=== PATIENT | male | born 1955 | race Caucasian/White ===

== ENCOUNTER → 2017-01-26 | Outpatient (CLI) | payer OTHER ==
[2017-01-26 17:50] LABS: ALT 60 U/L (21-72); AST 39 U/L (17-59); Alkaline Phosphatase 50 U/L (38-126); Anion Gap 9 mmol/L; Blood Urea Nitrogen 18 mg/dL (9-20); Calcium 9.8 mg/dL (8.4-10.2); Carbon Dioxide 28 mmol/L (22-30); Chloride 105 mmol/L (98-107); Glucose 102 mg/dL (74-99); Non-African American GFR(MDRD) 57 (>60 ml/min/1.73 sqM); Potassium 4.4 mmol/L (3.5-5.1); Sodium 142 mmol/L (137-145); Total Bilirubin 0.9 mg/dL (0.2-1.3); Total Protein 7.3 g/dL (6.3-8.2)
[2017-01-27 16:50] LABS: Lead Source VENOUS
[2017-01-28 07:13] LABS: Lead, Blood 28.5 ug/dL (0.0-9.8)
== END | disposition home or self-care (01) ==
LOC: LABWHC1 16:44
PROVIDERS: ATTEND Family Medicine
DX: T56.0X4D Toxic effect of lead and its compounds, undetermined, subsequent encounter (principal)
CPT/HCPCS: 36415; 80053; 83655

== ENCOUNTER → 2017-05-05 | Outpatient (CLI) | payer OTHER ==
--- NOTE | 2017-05-05 16:06 | XR ---
Left shoulder HISTORY: Left shoulder pain 3 views of the left shoulder Left lung apex as visualized is normal. There is joint space loss of the glenohumeral joint with igor inal spurring present. Question distal left clavicular resection, correlate for surgery. 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 IMPRESSION: Osteoarthritis.
== END ==
LOC: RADXRYALE 15:16
PROVIDERS: ATTEND Family Medicine
DX: M19.012 Primary osteoarthritis, left shoulder (principal)

== ENCOUNTER 2017-09-02 07:20 | Day surgery (SDC) | payer OTHER ==
[2017-08-25 07:59] VITALS: BMI 29.5
[~2017-09-02 07:20] MED LIST: LACTATED RINGERS 1,000 ML IV SCH
[2017-09-02 07:51] VITALS: TEMP 97.7
[2017-09-02] MEDS ORDERED: LIDOCAINE 1% 20 ML VIAL (10MG/ML) FOR IV START INTRADERMA ONE (07:52)
[2017-09-02] MEDS ORDERED: ONDANSETRON 4 MG/2 ML VIAL IVP ONE (07:53)
[2017-09-02] MEDS ORDERED: DEXAMETHASONE SOD PHOSPHATE 10 MG/ML 1 ML VIAL IV ONE (07:54)
[2017-09-02] MEDS ORDERED: PROPOFOL 10 MG/ML 20 ML VIAL IV ONE (08:32)
[2017-09-02] MEDS ORDERED: LIDOCAINE 1% INJ 10MG/ML (20 ML MDV) ONE (08:32)
[2017-09-02 09:10] VITALS: RESP 16
[2017-09-02 09:34] VITALS: BP 108/68; PULSE 59
--- NOTE | 2017-09-02 11:40 | P.PCN ---
Date of Procedure: 09/02/17 Procedure(s) Performed: procedure: Total colonoscopy. Preoperative diagnosis: Screening for neoplasia. Postoperative diagnosis: Exam within normal limits. Preparation: HalfLytely prep. Sedation: Was provided by anesthesia. Brief clinical history: The patient is a 61-year-old male who is scheduled for this evaluation for screening for neoplasia. He has a prior exam more than 10 years ago and he believes couple or 3 polyps were removed at that time. He has occasional intermittent bleeding per rectum which he ascribes for hemorrhoids. He had prior hemorrhoid surgery with Dr. Perry several years back. At this time, he has no abdominal complaints, bleeding or anemia. Procedure: With the patient on his left lateral decubitus position and after informed consent and adequate sedation, the perianal area was inspected and it did not show any fissures or fistulas. There were no masses felt on digital rectal examination, the anal canal felt minimally stenotic. The Olympus CFQ 160L video colonoscope was then inserted in the rectum in the usual fashion and advanced to the cecum. There were no polyps or tumors seen or any obvious diverticular disease or other pathology. The mucosa appeared healthy. I retroflexed the endoscope in the rectum before the endoscope was withdrawn. The patient tolerated the procedure well. Plan: The patient was reassured. Discussed dietary measures. He will follow up with you as planned and I recommended repeat exam in 5 years.
== END 2017-09-02 09:56 | disposition home or self-care (01) ==
LOC: ORWHC2ENDO 07:20
DX: Z12.11 Encounter for screening for malignant neoplasm of colon (principal); J45.909 Unspecified asthma, uncomplicated; K21.9 Gastro-esophageal reflux disease without esophagitis; I10 Essential (primary) hypertension; M19.90 Unspecified osteoarthritis, unspecified site; Z88.8 Allergy status to other drugs, medicaments and biological substances; Z79.899 Other long term (current) drug therapy
CPT/HCPCS: J1100; J2405; J2001; J2704; G0121; 45378

== ENCOUNTER → 2017-10-28 | Outpatient (CLI) | payer OTHER ==
--- NOTE | 2017-10-28 14:53 | XR ---
EXAMINATION TYPE: XR wrist complete LT DATE OF EXAM: 10/28/2017 CLINICAL HISTORY: Left wrist pain. TECHNIQUE: Frontal, lateral and oblique images of the left wrist are obtained. COMPARISON: None FINDINGS: There is no acute fracture/dislocation evident in the left wrist. There is joint space los s distal radius articulation with scaphoid. No suspicious widening scapholunate space is present. The overlying soft tissue appears unremarkable. IMPRESSION: There is narrowing distal radius articulation with scaphoid.
--- NOTE | 2017-10-28 14:54 | XR ---
EXAMINATION TYPE: XR knee complete LT DATE OF EXAM: 10/28/2017 CLINICAL HISTORY: Left knee pain after strain injury last week. TECHNIQUE: Three views of the left knee are obtained. COMPARISON: None. FINDINGS: There is no acute fracture/dislocation evident in left knee. The tri-compartment joint sp aces appear within normal limits. The overlying soft tissue appears unremarkable. IMPRESSION: There is no acute fracture or dislocation in the left knee.
== END | disposition home or self-care (01) ==
LOC: RADXRYALE 14:34
PROVIDERS: ATTEND Physician Assistant Medical
DX: M89.8X4 Other specified disorders of bone, hand (principal); M25.532 Pain in left wrist; M25.562 Pain in left knee

== ENCOUNTER 2018-01-27 13:13 | Inpatient (IN) | payer OTHER ==
--- NOTE | 2018-01-27 14:13 | ED ---
General Adult HPI - General Chief complaint: Chest Pain Stated complaint: Chest Pain Time Seen by Provider: 01/27/18 13:48 Source: patient, RN notes reviewed, old records reviewed Mode of arrival: wheelchair Limitations: no limitations - History of Present Illness Initial comments: 62-year-old male presenting for evaluation of chest pain. Patient's pain has been ongoing for approximately one month. He does state that it is substernal, right-sided and radiates to his neck. It is associated with diaphoresis with it at its worst. Patient has no known history of CAD. He is otherwise healthy. Nonsmoker. Patient was sent from his primary care's office with EKG changes. Symptoms are related to stress as he has had a lot of issues with his family over the past month. He reports almost daily indigestion which has been taking antacids for. No lower extremity pain or swelling. No abdominal pain. - Related Data Home Medications Medication Instructions Recorded Confirmed Flaxseed Oil [[place]-3 Flaxseed Oil] 1,000 mg PO DAILY 03/08/17 01/27/18 Multivitamins, Thera [Multivitamin 1 tab PO DAILY 03/08/17 01/27/18 (formulary)] [place]-3 Fatty Acids/Fish Oil [Fish 1 cap PO DAILY 03/08/17 01/27/18 Oil 1,000 mg Capsule] Celecoxib [CeleBREX] 200 mg PO QAM 08/25/17 01/27/18 Ascorbic Acid [Vitamin C] 500 mg PO DAILY 01/27/18 01/27/18 Calcium Carbonate [Calcium] 600 mg PO DAILY 01/27/18 01/27/18 Glucosamine/Chondr Diane A Sod [Osteo 1 tab PO DAILY 01/27/18 01/27/18 Bi-Flex Caplet] Allergies Allergy/AdvReac Type Severity Reaction Status Date / Time antihistamines Allergy rapid Uncoded 01/27/18 13:19 heart beat/passed out Review of Systems ROS Statement: Those systems with pertinent positive or pertinent negative responses have been documented in the HPI. ROS Other: All systems not noted in ROS Statement are negative. Past Medical History Past Medical History: Asthma, GERD/Reflux, Hypertension, Osteoarthritis (OA) Additional Past Medical History / Comment(s): hx of polyps and hemmoroids History of Any Multi-Drug Resistant Organisms: None Reported Past Surgical History: Cholecystectomy, Orthopedic Surgery Additional Past Surgical History / Comment(s): hemorrhoidectomy x 3, fusion of joint in great toe rt foot, rt hand surgery(removed two bones), chanel shoulder rotator cuff, left shoulder x2 Past Anesthesia/Blood Transfusion Reactions: Postoperative Nausea & Vomiting ( PONV) Additional Past Anesthesia/Blood Transfusion Reaction / Comment(s): severe, NV with pre op nausea meds Past Psychological History: No Psychological Hx Reported Smoking Status: Never smoker Past Alcohol Use History: Occasional Past Drug Use History: None Reported - Past Family History Sister(s) Family Medical History: Cancer, Deep Vein Thrombosis (DVT) General Exam Limitations: no limitations General appearance: alert, in no apparent distress Head exam: Present: atraumatic, normocephalic Eye exam: Present: normal appearance, PERRL, EOMI ENT exam: Present: normal exam Neck exam: Present: normal inspection. Absent: tenderness, meningismus Respiratory exam: Present: normal lung sounds bilaterally. Absent: respiratory distress Cardiovascular Exam: Present: regular rate, normal rhythm GI/Abdominal exam: Present: soft. Absent: distended, tenderness Extremities exam: Present: normal inspection, normal capillary refill. Absent: pedal edema Neurological exam: Present: alert, oriented X3, CN II-XII intact. Absent: motor sensory deficit Psychiatric exam: Present: normal affect, normal mood Skin exam: Present: warm, dry, intact. Absent: cyanosis, diaphoretic Course Vital Signs 01/27/18 01/27/18 13:17 15:24 Temperature 98.0 F Pulse Rate 60 59 L Respiratory 18 19 Rate Blood Pressure 149/86 145/74 O2 Sat by Pulse 98 98 Oximetry EKG Findings - EKG Comments: EKG Findings:: EKG shows normal sinus rhythm, rate of 61 FL interval 124 QRS duration 84 QTC 394, T-wave inversion in leads [address] segment elevation. Medical Decision Making - Medical Decision Making 62-year-old male presenting with chest pain and EKG changes from his primary care office. EKG does show nonspecific ischemic changes with T-wave inversion in the inferior leads. Chest x-ray obtained, is negative for any acute pathology. Laboratory studies reveal normal CBC, normal CMP, troponin is 0.013, this level will be trended. Patient is started on heparin, given aspirin. He was chest pain-free while in the emergency department. He will be admitted for cardiology consultation - Lab Data Result diagrams: 01/27/18 14:22 01/27/18 14:22 Lab Results 01/27/18 01/27/18 01/27/18 Range/Units 14:22 14:22 14:22 WBC 6.5 (3.8-10.6) k/uL RBC 5.22 (4.30-5.90) m/uL Hgb 16.0 (13.0-17.5) gm/dL Hct 44.6 (39.0-53.0) % MCV 85.3 (80.0-100.0) fL MCH 30.6 (25.0-35.0) pg MCHC 35.9 (31.0-37.0) g/dL RDW 12.9 (11.5-15.5) % Plt Count 134 L (150-450) k/uL Neutrophils % 59 % Lymphocytes % 29 % Monocytes % 7 % Eosinophils % 3 % Basophils % 1 % Neutrophils # 3.8 (1.3-7.7) k/uL Lymphocytes # 1.9 (1.0-4.8) k/uL Monocytes # 0.5 (0-1.0) k/uL Eosinophils # 0.2 (0-0.7) k/uL Basophils # 0.0 (0-0.2) k/uL PT (9.0-12.0) sec INR (<1.2) APTT (22.0-30.0) sec Sodium 146 H (137-145) mmol/L Potassium 4.2 (3.5-5.1) mmol/L Chloride 109 H (98-107) mmol/L Carbon Dioxide 24 (22-30) mmol/L Anion Gap 13 mmol/L BUN 20 (9-20) mg/dL Creatinine 0.95 (0.66-1.25) mg/dL Est GFR (CKD-EPI)AfAm >90 (>60 ml/min/1.73 sqM) Est GFR (CKD-EPI)NonAf 87 (>60 ml/min/1.73 sqM) Glucose 99 (74-99) mg/dL Calcium 9.1 (8.4-10.2) mg/dL Magnesium 2.0 (1.6-2.3) mg/dL Total Bilirubin 0.9 (0.2-1.3) mg/dL AST 54 (17-59) U/L ALT 71 (21-72) U/L Alkaline Phosphatase 49 (38-126) U/L Total Creatine Kinase 365 H (55-170) U/L CK-MB (CK-2) 4.2 H* (0.0-2.4) ng/mL CK-MB (CK-2) Rel Index 1.2 Troponin I 0.013 (0.000-0.034) ng/mL NT-Pro-B Natriuret Pep pg/mL Total Protein 6.5 (6.3-8.2) g/dL Albumin 4.2 (3.5-5.0) g/dL Lipase 272 (23-300) U/L 01/27/18 01/27/18 Range/Units 14:22 14:22 WBC (3.8-10.6) k/uL RBC (4.30-5.90) m/uL Hgb (13.0-17.5) gm/dL Hct (39.0-53.0) % MCV (80.0-100.0) fL MCH (25.0-35.0) pg MCHC (31.0-37.0) g/dL RDW (11.5-15.5) % Plt Count (150-450) k/uL Neutrophils % % Lymphocytes % % Monocytes % % Eosinophils % % Basophils % % Neutrophils # (1.3-7.7) k/uL Lymphocytes # (1.0-4.8) k/uL Monocytes # (0-1.0) k/uL Eosinophils # (0-0.7) k/uL Basophils # (0-0.2) k/uL PT 10.6 (9.0-12.0) sec INR 1.1 (<1.2) APTT 23.0 (22.0-30.0) sec Sodium (137-145) mmol/L Potassium (3.5-5.1) mmol/L Chloride (98-107) mmol/L Carbon Dioxide (22-30) mmol/L Anion Gap mmol/L BUN (9-20) mg/dL Creatinine (0.66-1.25) mg/dL Est GFR (CKD-EPI)AfAm (>60 ml/min/1.73 sqM) Est GFR (CKD-EPI)NonAf (>60 ml/min/1.73 sqM) Glucose (74-99) mg/dL Calcium (8.4-10.2) mg/dL Magnesium (1.6-2.3) mg/dL Total Bilirubin (0.2-1.3) mg/dL AST (17-59) U/L ALT (21-72) U/L Alkaline Phosphatase (38-126) U/L Total Creatine Kinase (55-170) U/L CK-MB (CK-2) (0.0-2.4) ng/mL CK-MB (CK-2) Rel Index Troponin I (0.000-0.034) ng/mL NT-Pro-B Natriuret Pep 76 pg/mL Total Protein (6.3-8.2) g/dL Albumin (3.5-5.0) g/dL Lipase (23-300) U/L Disposition Clinical Impression: Unstable angina pectoris Disposition: ADMITTED IP TO THIS HOSP Condition: Stable Is patient prescribed a controlled substance at d/c from ED?: No Referrals: Zack Mancia DO [Primary Care Provider] - 1-2 days Decision to Admit Reason: Admit from EC Decision Date: 01/27/18 Decision Time: 15:59
[2018-01-27 14:35] LABS: Basophils % (A) 1 %; Eosinophils # (A) 0.2 k/uL (0-0.7); Eosinophils % (A) 3 %; HCT 44.6 % (39.0-53.0); Lymphocytes # (A) 1.9 k/uL (1.0-4.8); Lymphocytes % (A) 29 %; MCH 30.6 pg (25.0-35.0); MCHC 35.9 g/dL (31.0-37.0); MCV 85.3 fL (80.0-100.0); Monocytes # (A) 0.5 k/uL (0-1.0); Monocytes % (A) 7 %; Neutrophils # (A) 3.8 k/uL (1.3-7.7); Neutrophils % (A) 59 %; Platelet Count 134 k/uL (150-450); RBC 5.22 m/uL (4.30-5.90); RDW 12.9 % (11.5-15.5); WBC 6.5 k/uL (3.8-10.6)
[2018-01-27 14:43] LABS: ALT 71 U/L (21-72); AST 54 U/L (17-59); Albumin 4.2 g/dL (3.5-5.0); Alkaline Phosphatase 49 U/L (38-126); Anion Gap 13 mmol/L; Blood Urea Nitrogen 20 mg/dL (9-20); Calcium 9.1 mg/dL (8.4-10.2); Carbon Dioxide 24 mmol/L (22-30); Chloride 109 mmol/L (98-107); Glucose 99 mg/dL (74-99); Lipase 272 U/L (23-300); Potassium 4.2 mmol/L (3.5-5.1); Sodium 146 mmol/L (137-145); Total Bilirubin 0.9 mg/dL (0.2-1.3); Total Protein 6.5 g/dL (6.3-8.2)
[2018-01-27 14:44] LABS: INR 1.1 (<1.2); Prothrombin Time 10.6 sec (9.0-12.0)
--- NOTE | 2018-01-27 14:49 | XR ---
EXAMINATION TYPE: XR chest 2V DATE OF EXAM: 01/27/2018 COMPARISON: NONE HISTORY: History of asthma presents with chest pain. TECHNIQUE: Frontal and lateral views of the chest are obtained. FINDINGS: There is no focal air space opacity, pleural effusion, or pneumothorax seen. The cardiac silhouette size is within normal limits. The osseous structures are intact. Cholecystectomy clips a re noted on lateral view. IMPRESSION: No acute cardiopulmonary process.
[2018-01-27 14:59] LABS: Troponin I 0.013 ng/mL (0.000-0.034)
[2018-01-27 15:01] LABS: Creatine Kinase MB 4.2 ng/mL (0.0-2.4)
[2018-01-27] MEDS ORDERED: HEPARIN SODIUM,PORCINE 5,000 UNIT/ML 1 ML VIAL IV PRN (15:23)
[2018-01-27] MEDS ORDERED: HEPARIN SODIUM,PORCINE 5,000 UNIT/ML 1 ML VIAL IV ONE (15:23)
[2018-01-27] MEDS ORDERED: ASPIRIN 325 MG TAB PO STA (15:23)
[2018-01-27] MEDS ORDERED: HEPARIN SODIUM,PORCINE/D5W PMX 25,000 UNIT in DEXTROSE/WATER 1 500ML.BAG IV SCH (15:30)
[2018-01-27] MEDS ORDERED: MORPHINE SULFATE 4 MG/ML SYRINGE IV PRN (15:55)
[2018-01-27] MEDS ORDERED: NALOXONE 0.4 MG/ML 1 ML VIAL IV PRN (15:55)
[2018-01-27] MEDS ORDERED: ONDANSETRON 4 MG/2 ML VIAL IVP PRN (15:55)
[2018-01-27] MEDS ORDERED: NITROGLYCERIN SL TABS 0.4 MG TAB SUBLINGUAL PRN (15:57)
[2018-01-27 21:56] LABS: Creatine Kinase 247 U/L (55-170)
[2018-01-27 22:09] LABS: Troponin I <0.012 ng/mL (0.000-0.034)
[2018-01-27 22:23] LABS: Creatine Kinase MB 3.1 ng/mL (0.0-2.4)
[2018-01-27] MEDS ORDERED: HYDROcodone/APAP 5-325MG 1 EACH TAB PO PRN (23:20)
[2018-01-27] MEDS ORDERED: ACETAMINOPHEN TAB 500 MG TAB PO PRN (23:20)
--- NOTE | 2018-01-27 23:53 | HP ---
HISTORY AND PHYSICAL DATE OF SERVICE: 01/27/2018. CHIEF COMPLAINT: Chest pain. HISTORY OF PRESENT ILLNESS: This 62-year-old gentleman with a past medical history of multiple medical problems including history of GERD, hypertension, DJD being followed by Dr. Mancia in the outpatient setting apparently has been under a lot of stress because of the his mother's illness of CHF, and the fact that the patient's mother is in [place]. The patient came back here in [place] and patient was working in the yard and patient was complaining on and off chest pain for the last couple days, which is nagging in character. Chest pain mainly in the mid part and right lower part, which is radiating upwards to the neck on exertion. The patient went to Dr. Mancia's office. T-wave inversion noted in the inferior leads. The patient directed to [facility] and admitted for further evaluation and treatment. There is no history of fever, rigors. No history of headache, loss of consciousness or seizures at this time. PAST MEDICAL HISTORY: History of asthma, GERD, hypertension and DJD. MEDICATIONS: Prior to admission include home medications are: 1. Calcium 600 mg p.o. daily. 2. [place]-3 fatty acids. 3. Multivitamins one p.o. daily. 4. Osteo Bi-Flex 1 p.o. daily. 5. [place]-3 1000 mg p.o. 6. Celebrex 200 mg p.r.n. 7. Vitamin C 500 mg p.o. daily. ALLERGIES: ANTIHISTAMINES. FAMILY HISTORY: History of cancer, DVT. SOCIAL HISTORY: Occasional alcohol intake. No smoking. REVIEW OF SYSTEMS: ENT: No diminished vision. No diminished hearing. CARDIOVASCULAR: As mentioned earlier. Respirations: No cough. GI the patient has got cholecystectomy and GERD also. no dysuria or retention. Nervous system: No numbness, weakness. Allergy/Immunology: No asthma or hayfever. Musculoskeletal as mentioned earlier. Hematology/Oncology: No history of anemia. Endocrine: No history of diabetes or hypothyroidism. Constitutional: As mentioned earlier. Rheumatology: Negative. Dermatology: Negative. Psychiatric: As mentioned earlier. PHYSICAL EXAMINATION: Alert, oriented times three. Pulse 62. Blood pressure 130/80. Respiration 18, temperature 97.8, pulse ox 98% on room air. HEENT is conjunctivae normal. Oral mucosa moist. Neck is no jugular venous distention. No carotid bruit. No lymph node enlargement. Cardiovascular S1-S2 muffled. Respiratory: Breath sounds diminished in the bases. No rhonchi and no crackles. ABDOMEN: Soft, nontender. No mass palpable. Legs no edema. No swelling. NERVOUS SYSTEM: Higher functions as mentioned earlier. Moves all four limbs. No focal deficits. Lymphatics: No lymph nodes palpable in the neck, axillae or groin. Skin: No ulcers, rash, bleeding. LAB STUDIES: Platelets 134. Sodium 146, and creatine kinase 365. ASSESSMENT: 1. Chest pain possible unstable angina. 2. T-inversions in the inferior leads. 3. Increased creatine kinase. 4. Asthma. 5. Gastroesophageal reflux disease. 6. Hypertension. 7. History of degenerative joint disease. 8. History of cholecystectomy. RECOMMENDATIONS AND DISCUSSION: This 62-year-old gentleman who presented with multiple complex medical issues, we will monitor the patient closely, continue the current medications, management and symptomatic treatment. Otherwise, I would recommend resume the home medications and otherwise I would recommend cardiology consultation, possible stress test or cardiac cath depending upon the troponins. Otherwise, guarded prognosis because of multiple complex medical issues and further recommendations to follow. As mentioned earlier, I would recommend further sets of troponins and as well as the labs as well. Lipid panel has also been requested. MMODL / IJN: [id number] /
[2018-01-28 00:56] VITALS: RESP 16
[2018-01-28 03:28] LABS: Anion Gap 10 mmol/L; Blood Urea Nitrogen 19 mg/dL (9-20); Calcium 8.9 mg/dL (8.4-10.2); Carbon Dioxide 25 mmol/L (22-30); Chloride 106 mmol/L (98-107); Cholesterol 143 mg/dL (<200); Glucose 105 mg/dL (74-99); HDL Cholesterol 37 mg/dL (40-60); LDL Cholesterol,Calculated 76 mg/dL (0-99); Potassium 4.1 mmol/L (3.5-5.1); Sodium 141 mmol/L (137-145); Triglycerides 152 mg/dL (<150)
[2018-01-28 03:29] LABS: Basophils # (A) 0.1 k/uL (0-0.2); Basophils % (A) 1 %; Eosinophils # (A) 0.1 k/uL (0-0.7); Eosinophils % (A) 2 %; HCT 43.2 % (39.0-53.0); HGB 15.2 gm/dL (13.0-17.5); Lymphocytes # (A) 2.6 k/uL (1.0-4.8); Lymphocytes % (A) 40 %; MCH 30.5 pg (25.0-35.0); MCHC 35.2 g/dL (31.0-37.0); MCV 86.5 fL (80.0-100.0); Mean Platelet Volume 9.3; Monocytes # (A) 0.4 k/uL (0-1.0); Monocytes % (A) 6 %; Neutrophils # (A) 3.2 k/uL (1.3-7.7); Neutrophils % (A) 50 %; Platelet Count 107 k/uL (150-450); RBC 4.99 m/uL (4.30-5.90); RDW 12.9 % (11.5-15.5); WBC 6.5 k/uL (3.8-10.6)
[2018-01-28 03:31] LABS: Creatine Kinase 175 U/L (55-170)
[2018-01-28 03:44] LABS: Creatine Kinase MB 2.3 ng/mL (0.0-2.4); Troponin I <0.012 ng/mL (0.000-0.034)
[2018-01-28] MEDS ORDERED: PANTOPRAZOLE 40 MG TABLET PO SCH (07:30)
[2018-01-28 07:37] VITALS: TEMP 97.6
[2018-01-28] MEDS ORDERED: CALCIUM CARBONATE 500 MG CHEWABLE PO SCH (09:00)
--- NOTE | 2018-01-28 10:35 | P.CRDCN ---
History of Present Illness Consult date: 01/28/18 Requesting physician: Khadra Potter Consult reason: chest pain Chief complaint: Chest pain History of present illness: This is a 62-year-old gentleman with history of hypertension for which he states he no longer takes any antihypertensive medications. He denies history of hyperlipidemia, nondiabetic, nonsmoker. States he's been under significant amount of stress recently. He's been experiencing intermittent chest discomfort off-and-on for approximately one month. He describes the chest pain as an ache, radiates at times up into the neck. He does get associated diaphoresis. He went to see his primary care doctor, who had compared to an EKG to one he had done in 2000 at the time of the stress test, because of some changes noted on EKG was advised to come to the hospital for further evaluation. EKG on arrival here showed normal sinus rhythm with T-wave inversion in the inferior leads. Upon review of old EKG in 2015, patient was noted at that time to have T-wave inversion in the inferior leads as well. Chest x-ray does not reveal any acute cardiopulmonary process. White blood cell count 6.5, hemoglobin 15.2, platelet count 107. Sodium 141, potassium 4.1 , BUN 19, creatinine 1.0. BNP level is normal, troponins 0.013, 0.012, 0.012. The pressure on arrival 148/86, heart rate in the 60s, 98% on room air. At the time of my examination this morning, patient states he still has a dull ache in the right side of his chest. Nondiaphoretic. Breathing is stable. 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 History of Any Multi-Drug Resistant Organisms: None Reported Past Surgical History: Cholecystectomy, Orthopedic Surgery Additional Past Surgical History / Comment(s): hemorrhoidectomy x 3, fusion of joint in great toe rt foot, rt hand surgery(removed two bones), chanel shoulder rotator cuff, left shoulder x2 Past Anesthesia/Blood Transfusion Reactions: Postoperative Nausea & Vomiting ( PONV) Additional Past Anesthesia/Blood Transfusion Reaction / Comment(s): severe, NV with pre op nausea meds Smoking Status: Never smoker - Past Family History Sister(s) Family Medical History: Cancer, Deep Vein Thrombosis (DVT) Mother Family Medical History: Congestive Heart Failure (CHF) Additional Family Medical History / Comment(s): mom is age 86 and in hospice care in [place] -chf Father Family Medical History: Myocardial Infarction (SC) Additional Family Medical History / Comment(s): several mi's still alive at age 91 Medications and Allergies Home Medications Medication Instructions Recorded Confirmed Type Flaxseed Oil [[place]-3 Flaxseed Oil] 1,000 mg PO DAILY 03/08/17 01/27/18 History Multivitamins, Thera [Multivitamin 1 tab PO DAILY 03/08/17 01/27/18 History (formulary)] [place]-3 Fatty Acids/Fish Oil [Fish 1 cap PO DAILY 03/08/17 01/27/18 History Oil 1,000 mg Capsule] Celecoxib [CeleBREX] 200 mg PO QAM 08/25/17 01/27/18 History Ascorbic Acid [Vitamin C] 500 mg PO DAILY 01/27/18 01/27/18 History Calcium Carbonate [Calcium] 600 mg PO DAILY 01/27/18 01/27/18 History Glucosamine/Chondr Diane A Sod [Osteo 1 tab PO DAILY 01/27/18 01/27/18 History Bi-Flex Caplet] Allergies Allergy/AdvReac Type Severity Reaction Status Date / Time antihistamines Allergy rapid Uncoded 01/27/18 13:19 heart beat/passed out Physical Exam Vitals: Vital Signs Temp Pulse Pulse Resp BP BP Pulse Ox 01/28/18 07:33 97.6 F 62 16 128/80 99 01/28/18 04:00 98.6 F 60 16 135/90 97 01/28/18 00:00 98.2 F 66 16 139/81 98 01/27/18 23:19 62 18 01/27/18 20:00 97.9 F 62 18 138/83 98 01/27/18 17:14 98.7 F 60 18 152/70 98 01/27/18 16:45 89 18 01/27/18 16:37 55 L 18 152/87 99 01/27/18 15:24 59 L 19 145/74 98 01/27/18 13:17 98.0 F 60 18 149/86 98 Intake and Output 01/27/18 01/28/18 01/28/18 22:59 06:59 14:59 Intake Total 113.635 125 Balance 113.635 125 Intake: Intake, IV Titration 113.635 Amount Heparin Sodium,Porcine/ 113.635 D5w Pmx 25,000 unit In Dextrose/Water 1 500ml. bag @ 9.5 UNITS/KG/HR 19. 82 mls/hr IV .Q24H [facility] Rx #:[id number] Oral 125 Other: # Voids 2 1 Weight 107.3 kg PHYSICAL EXAMINATION: HEENT: [Head is atraumatic, normocephalic. Pupils equal, round. Neck is supple. There is no elevated jugular venous pressure.] HEART EXAMINATION: [Heart S1, S2 normal. No murmur or gallop heard.] CHEST EXAMINATION:[ Lungs are clear to auscultation and precussion. No chest wall tenderness is noted on palpation or with deep breathing.] ABDOMEN: [ Soft, nontender. Bowel sounds are heard. No organomegaly noted]. EXTREMITIES:[ 2+ peripheral pulses with no evidence of peripheral edema and no calf tenderness noted]. NEUROLOGIC [patient is awake, alert and oriented -3.] . Results 01/28/18 03:05 01/28/18 03:05 Cardiac Enzymes 01/27/18 01/27/18 01/27/18 Range/Units 14:22 14:22 21:01 AST 54 (17-59) U/L CK-MB (CK-2) 4.2 H* 3.1 H* (0.0-2.4) ng/mL Troponin I 0.013 <0.012 (0.000-0.034) ng/mL 01/28/18 Range/Units 03:05 AST (17-59) U/L CK-MB (CK-2) 2.3 (0.0-2.4) ng/mL Troponin I <0.012 (0.000-0.034) ng/mL Coagulation 01/27/18 01/27/18 01/28/18 Range/Units 14:22 21:01 03:05 PT 10.6 (9.0-12.0) sec APTT 23.0 32.1 H 56.6 H (22.0-30.0) sec Lipids 01/28/18 Range/Units 03:05 Triglycerides 152 H (<150) mg/dL Cholesterol 143 (<200) mg/dL HDL Cholesterol 37 L (40-60) mg/dL CBC 01/27/18 01/28/18 Range/Units 14:22 03:05 WBC 6.5 6.5 (3.8-10.6) k/uL RBC 5.22 4.99 (4.30-5.90) m/uL Hgb 16.0 15.2 (13.0-17.5) gm/dL Hct 44.6 43.2 (39.0-53.0) % Plt Count 134 L 107 L (150-450) k/uL Comprehensive Metabolic Panel 01/27/18 01/28/18 Range/Units 14:22 03:05 Sodium 146 H 141 (137-145) mmol/L Potassium 4.2 4.1 (3.5-5.1) mmol/L Chloride 109 H 106 (98-107) mmol/L Carbon Dioxide 24 25 (22-30) mmol/L BUN 20 19 (9-20) mg/dL Creatinine 0.95 1.00 (0.66-1.25) mg/dL Glucose 99 105 H (74-99) mg/dL Calcium 9.1 8.9 (8.4-10.2) mg/dL AST 54 (17-59) U/L ALT 71 (21-72) U/L Alkaline Phosphatase 49 (38-126) U/L Total Protein 6.5 (6.3-8.2) g/dL Albumin 4.2 (3.5-5.0) g/dL Current Medications Generic Name Dose Route Start Last Admin Trade Name Freq PRN Reason Stop Dose Admin Acetaminophen 500 mg 01/27/18 23:20 Tylenol Tab PO Q6HR PRN Fever and/ or Pain Hydrocodone Bitart/Acetaminophen 1 each 01/27/18 23:20 [place] 5-325 PO Q6HR PRN Pain Calcium Carbonate/Glycine 500 mg 01/28/18 09:00 Tums PO DAILY IRMA Heparin Sodium (Porcine) 0 unit 01/27/18 15:23 01/27/18 21:46 Heparin IV 4,000 unit PER PROTOCOL PRN Administration Low PTT Protocol Heparin Sodium/Dextrose 25,000 500 mls @ 19.82 mls/hr 01/27/18 15:30 21:44 unit/ IV Solution IV 12.5 units/kg/hr .Q24H [facility] 26.08 mls/hr Protocol Titration 9.5 UNITS/KG/HR Morphine Sulfate 4 mg 01/27/18 15:55 Morphine Sulfate (Inj) IV Q4HR PRN Severe Pain Multivitamins 1 each 01/28/18 12:00 Theragran PO DAILY@1200 IRMA Naloxone HCl 0.2 mg 01/27/18 15:55 Narcan IV Q2M PRN Opioid Reversal Nitroglycerin 0.4 mg 01/27/18 15:57 Nitrostat SUBLINGUAL Q5M PRN Chest Pain Ondansetron HCl 4 mg 01/27/18 15:55 Zofran IVP Q8HR PRN Nausea And Vomiting Pantoprazole Sodium 40 mg 01/28/18 07:30 01/28/18 06:37 Protonix PO Not Given AC-[id number] IRMA Intake and Output 01/27/18 01/28/18 01/28/18 22:59 06:59 14:59 Intake Total 113.635 125 Balance 113.635 125 Intake: Intake, IV Titration 113.635 Amount Heparin Sodium,Porcine/ 113.635 D5w Pmx 25,000 unit In Dextrose/Water 1 500ml. bag @ 9.5 UNITS/KG/HR 19. 82 mls/hr IV .Q24H [facility] Rx #:[id number] Oral 125 Other: # Voids 2 1 Weight 107.3 kg 01/28/18 03:05 01/28/18 03:05 EKG Interpretations (text) EKG shows a normal sinus rhythm with T wave inversion noted in the inferior leads. Assessment and Plan Plan: Assessment and plan #1 chest discomfort, with some atypical features for acute coronary syndrome. Troponins 0.013, 0.012, 0.012. EKG shows normal sinus rhythm with T-wave inversion in the inferior leads, similar to prior EKGs. #2 history of hypertension, not currently on medications as an outpatient. #3 non-diabetic, no hyperlipidemia, nonsmoker. Plan We will obtain an echocardiogram with Doppler study, she has also been advised to undergo cardiac catheterization, the risks and the benefits were explained to him in detail, this will be performed today by Dr. VC Aleman. DNP note has been reviewed, I agree with a documented findings and plan of care. Patient was seen and examined.
[2018-01-28] MEDS ORDERED: ASPIRIN 325 MG TAB PO STA (10:36)
[2018-01-28] MEDS ORDERED: ALPRAZolam 0.25 MG TAB PO PRN (10:36)
[2018-01-28] MEDS ORDERED: NITROGLYCERIN SL TABS 0.4 MG TAB SUBLINGUAL PRN (10:36)
[2018-01-28] MEDS ORDERED: ATORVASTATIN 80 MG TAB PO STA (10:36)
[2018-01-28] MEDS ORDERED: SODIUM CHLORIDE 0.9% 1,000 ML in EMPTY BAG 1 BAG IV ONE (10:36)
[2018-01-28] MEDS ORDERED: ALPRAZolam 0.5 MG TAB PO PRN (10:36)
[2018-01-28] MEDS ORDERED: LIDOCAINE 2% INJ 20 MG/ML (20 ML MDV) ONE (10:46)
[2018-01-28] MEDS ORDERED: MIDAZOLAM 2 MG/2 ML VIAL ONE (11:15)
[2018-01-28] MEDS ORDERED: fentaNYL (PF) 50 MCG/ML 2 ML AMP ONE (11:15)
[2018-01-28] MEDS ORDERED: SODIUM CHLORIDE 0.9% 1,000 ML IV ONE (11:20)
[2018-01-28] MEDS ORDERED: fentaNYL (PF) 50 MCG/ML 2 ML AMP IVP ONE (11:28)
[2018-01-28] MEDS: MIDAZOLAM 2 MG/2 ML VIAL IVP ONE ×2 (11:28→11:33)
[2018-01-28] MEDS ORDERED: LIDOCAINE 2% INJ 20 MG/ML SQ ONE (11:32)
[2018-01-28] MEDS ORDERED: MULTIVITAMINS, THERA 1 EACH TAB PO SCH (12:00)
[2018-01-28] MEDS ORDERED: RX INFO: IV CONTRAST WAS GIVEN 1 EACH MISC MISCELLANE PRN (12:02)
[2018-01-28] MEDS ORDERED: SODIUM CHLORIDE 0.9% 1,000 ML IV SCH (12:15)
[2018-01-28] MEDS ORDERED: LISINOPRIL 10 MG TAB PO SCH (12:15)
--- NOTE | 2018-01-28 14:33 | CC ---
CARDIAC CATHETERIZATION REPORT is admitted with a complaint of recurrent chest pain of 2-3 weeks duration. EKG showed some ST-segment depression and T-wave inversions in the inferior leads. In view of the chest pain and abnormal EKG. The patient was recommended to have a cardiac catheterization for definitive diagnosis. PROCEDURE: The right groin was prepped and draped in the usual manner and the skin was infiltrated with 2% Xylocaine. The right femoral artery was entered using Seldinger technique a #6- Japanese sheath was placed in. Selective coronary angiography was then performed in multiple projections and the left ventricular pressures were obtained. Patient tolerated the procedure well. Moderate sedation was used. Total sedation time is 21 minutes. SELECTIVE CORONARY ANGIOGRAPHY: Left main coronary artery is normal and patent. LAD is a good caliber blood vessel and gives rise to a good size diagonal branch. LAD and its branches are normal. Circumflex coronary artery is dominant in distribution, gives rise to a good size obtuse marginal branch and good-sized good size PLV and PDA branch. Circumflex coronary artery and its branches are normal. The right coronary artery is a small nondominant. Left ventricular end-diastolic pressure is 12 mmHg prior to angiography. No gradient is noted across the aortic valve. FINAL IMPRESSION: This study reveals normal coronary arteries. Left ventricular end-diastolic pressure is normal. RECOMMENDATIONS: Medical treatment. MMODL / IJN: [id number] /
[2018-01-28 16:01] VITALS: PULSE 63
[2018-01-28 17:21] VITALS: BP 132/68
--- NOTE | 2018-01-29 07:43 | DS ---
DISCHARGE SUMMARY DATE OF SERVICE: 01/28/2018 FINAL DIAGNOSES: 1. Chest pain possible gastroesophageal reflux disease, status post cardiac cath which showed normal coronary arteries. 2. T-inversion in the inferior leads in EKG. 3. Increased creatinine. 4. Normal troponins. 5. Asthma. 6. Gastroesophageal reflux disease. 7. Hypertension. 8. History of degenerative joint disease. 9. History of cholecystectomy. 10.Mild hyperlipidemia. DISCHARGE DISPOSITION: The patient is being discharged in stable condition with guarded prognosis. HISTORY OF PRESENT ILLNESS: This is a 62-year-old gentleman with a past medical history of multiple problems admitted with chest pain and myocardial infarction ruled out. The EKG showed some T- inversions, but however, the troponins are negative and the patient underwent cardiac catheterization by Dr. Sebastian Aleman, which showed normal coronary arteries. The D-dimer was also negative. The patient was discharged in stable condition with guarded prognosis. The medications were adjusted. On exam, vitals are stable. Cardiovascular: S1, S2. Abdomen: Soft. Nervous System: No focal deficits. DISCHARGE ADVICE AND MEDICATIONS: 1. Diet is cardiac. 2. Activity limited until follow up. 3. Follow up with Dr. Mancia in 2-3 days. 4. 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 MEDICATIONS: 1. Tylenol 500 mg q.6h. p.r.n. 2. Vitamin C 500 mg. 3. Lipitor 20 mg p.o. daily. 4. Calcium 600 mg p.o. daily. 5. Celebrex 20 mg q.a.m. 6. Flaxseed 1000 mg p.o. daily. 7. Glucosamine chondroitin 1 p.o. daily. 8. Zestril 10 mg p.o. daily. 9. Multivitamins 1 p.o. daily. 10.[place]-3 fatty acids 1 p.o. daily. 11.Protonix 40 mg daily. MMODL / IJN: [id number] /
[2018-01-29] MEDS ORDERED: NON-FORMULARY DRUG (Omega-3 Fatty Acids/Fish Oil [Fish Oil 1,000 Mg Capsule] 1 CAP) PO SCH (09:00)
[2018-01-29] MEDS ORDERED: MELOXICAM 7.5 MG TAB PO SCH (09:00)
[2018-01-29] MEDS ORDERED: NON-FORMULARY DRUG (Flaxseed Oil [Omega-3 Flaxseed Oil] 1,000 MG) PO SCH (09:00)
[2018-01-29] MEDS ORDERED: NON-FORMULARY DRUG (Glucosamine/Chondr Su A Sod [Osteo Bi-Flex Caplet] 1 TAB) PO SCH (09:00)
[2018-01-29] MEDS ORDERED: ATORVASTATIN 20 MG TAB PO SCH (09:00)
[2018-01-29] MEDS ORDERED: ASCORBIC ACID 500 MG TAB PO SCH (12:00)
== END 2018-01-28 19:18 | disposition home or self-care (01) | DRG 392 ==
LOC: EC 13:13 → 6SEL 15:57
PROVIDERS: ADMIT Hospitalist; ATTEND Hospitalist
PROC: B2111ZZ Fluoroscopy of Multiple Coronary Arteries using Low Osmolar Contrast (ICD-10-PCS; principal; 2018-01-28 10:56)
PROC: 4A023N7 Measurement of Cardiac Sampling and Pressure, Left Heart, Percutaneous Approach (ICD-10-PCS; principal; 2018-01-28 10:56)
DX: K21.9 Gastro-esophageal reflux disease without esophagitis (principal); E78.5 Hyperlipidemia, unspecified; I10 Essential (primary) hypertension; J45.909 Unspecified asthma, uncomplicated; Z82.49 Family history of ischemic heart disease and other diseases of the circulatory system; Z90.49 Acquired absence of other specified parts of digestive tract; Z79.899 Other long term (current) drug therapy; Z88.8 Allergy status to other drugs, medicaments and biological substances; Z80.9 Family history of malignant neoplasm, unspecified; Z84.89 Family history of other specified conditions; M19.90 Unspecified osteoarthritis, unspecified site; Z98.1 Arthrodesis status
CPT/HCPCS: 36415; 71046; 80048; 80053; 80061; 82550; 82553; 83690; 83735; 83880; 84484; 85025; 85379; 85610; 85730; 93005; 93458; 96365; 96376; 99285

== ENCOUNTER → 2019-05-12 | Outpatient (CLI) | payer OTHER ==
--- NOTE | 2019-05-12 11:12 | XR ---
EXAMINATION TYPE: XR shoulder complete RT DATE OF EXAM: 05/12/2019 COMPARISON: NONE HISTORY: Pain TECHNIQUE: Shoulder examined in 3 FINDINGS: The humeral head articulates with the glenoid. Minimal joint space narrowing is likely present. The acromio-clavicular junction is normal. No acute fractures or dislocations are evident. A follow up study can be performed 7-10 days from acute trauma for continued pain. IMPRESSION: 1. Some mild osteoarthritic degenerative changes likely present at the right shoulder.
--- NOTE | 2019-05-12 11:23 | XR ---
EXAMINATION TYPE: XR wrist complete BILATERAL DATE OF EXAM: 05/12/2019 COMPARISON: 05/09/2016 hand images HISTORY: Chronic pain TECHNIQUE: Bilateral wrists examined in 3 projections each. 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 This is unchanged from prior study. T here is limited visualization of the proximal carpal row this is unchanged from 04/27/2016. Left wrist: No acute fractures or dislocations are evident. Joint spaces are preserved. Proximal and distal carpal rows appear within normal limits. IMPRESSION: 1. 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 Few small smooth fragments in the region of the scaphoid remain present. No acute right wrist abnormality is evident. 2. Normal-appearing left wrist
== END | disposition home or self-care (01) ==
LOC: RADXRYALE 09:13
PROVIDERS: ATTEND Family Medicine
DX: M19.011 Primary osteoarthritis, right shoulder (principal); M25.531 Pain in right wrist; M25.532 Pain in left wrist

== ENCOUNTER 2022-07-03 11:55 | Emergency (ER) | payer MEDICARE ==
[2022-07-03 12:00] VITALS: TEMP 98
--- NOTE | 2022-07-03 12:32 | ED ---
Extremity Problem HPI - General Chief complaint: Extremity Problem,Nontraumatic Stated complaint: Posible blood clot in arm Time Seen by Provider: 07/03/22 12:06 Source: patient, RN notes reviewed Mode of arrival: ambulatory Limitations: no limitations - History of Present Illness Initial comments: This is a 66-year-old male who presents to the emergency department for right arm pain. He had right shoulder surgery 9 days ago. When he was at physical therapy earlier today, he was notably tender to the right biceps. The physical therapist instructed him to come to the emergency department for evaluation of possible blood clot in the arm. He also has swelling over the incision site, and was also advised he have imaging of this area to look for a fluid collection. 3 months prior to this surgery, he had surgery on the left shoulder and had neither of these problems. Denies any chest pain or shortness of breath. Denies any fevers, chills, sore throat, cough, dyspnea, chest pain, palpitations, abdominal pain, nausea, vomiting, diarrhea, back pain, or headaches. MD Complaint: extremity pain, extremity swelling Location: right, upper extremity History of Same: No - Related Data Home Medications Medication Instructions Recorded Confirmed Multivitamins, Thera [Multivitamin 1 tab PO DAILY 03/08/17 01/27/18 (formulary)] [place]-3 Fatty Acids/Fish Oil [Fish 1 cap PO DAILY 03/08/17 01/27/18 Oil 1,000 mg Capsule] flaxseed oiL [[place]-3 Flaxseed Oil] 1,000 mg PO DAILY 03/08/17 01/27/18 Celecoxib [CeleBREX] 200 mg PO QAM 08/25/17 01/27/18 Ascorbic Acid [Vitamin C] 500 mg PO DAILY 01/27/18 01/27/18 Calcium Carbonate [Calcium] 600 mg PO DAILY 01/27/18 01/27/18 Glucosamine/Chondr Diane A Sod [Osteo 1 tab PO DAILY 01/27/18 01/27/18 Bi-Flex Caplet] Previous Rx's Medication Instructions Recorded Acetaminophen Tab [Tylenol] 500 mg PO Q6HR PRN tab 01/28/18 Atorvastatin [Lipitor] 20 mg PO DAILY #30 tab 01/28/18 Pantoprazole [Protonix] 40 mg PO AC-ISABELFSNida #30 tablet. 01/28/18 lisinopriL [Zestril] 10 mg PO DAILY #30 tab 01/28/18 Allergies Allergy/AdvReac Type Severity Reaction Status Date / Time antihistamines Allergy rapid Uncoded 07/03/22 12:00 heart beat/passed out Review of Systems ROS Statement: Those systems with pertinent positive or pertinent negative responses have been documented in the HPI. ROS Other: All systems not noted in ROS Statement are negative. 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 History of Any Multi-Drug Resistant Organisms: None Reported Past Surgical History: Cholecystectomy, Orthopedic Surgery Additional Past Surgical History / Comment(s): hemorrhoidectomy x 3, fusion of joint in great toe rt foot, rt hand surgery(removed two bones), chanel shoulder rotator cuff, left shoulder x2 Past Anesthesia/Blood Transfusion Reactions: Postoperative Nausea & Vomiting (PONV) Additional Past Anesthesia/Blood Transfusion Reaction / Comment(s): severe, NV with pre op nausea meds Past Psychological History: No Psychological Hx Reported Smoking Status: Never smoker Past Alcohol Use History: Occasional Past Drug Use History: None Reported - Past Family History Sister(s) Family Medical History: Cancer, Deep Vein Thrombosis (DVT) Mother Family Medical History: Congestive Heart Failure (CHF) Additional Family Medical History / Comment(s): mom is age 86 and in hospice care in [place] -chf Father Family Medical History: Myocardial Infarction ([place]) Additional Family Medical History / Comment(s): several mi's still alive at age 91 General Exam Limitations: no limitations General appearance: alert, in no apparent distress Head exam: Present: atraumatic, normocephalic, normal inspection Respiratory exam: Present: normal lung sounds bilaterally. Absent: respiratory distress, wheezes, rales, rhonchi, stridor Cardiovascular Exam: Present: regular rate, normal rhythm, normal heart sounds. Absent: systolic murmur, diastolic murmur, rubs, gallop, clicks Extremities exam: Present: other (Tenderness to the medial biceps of the right upper extremity, no swelling or erythema. Palpable swelling over the incision on the right shoulder. No overlying erythema.) Neurological exam: Present: alert, oriented X3, CN II-XII intact Psychiatric exam: Present: normal affect, normal mood Course Vital Signs 07/03/22 07/03/22 11:57 13:57 Temperature 98 F Pulse Rate 76 61 Respiratory 20 18 Rate Blood Pressure 148/75 124/85 O2 Sat by Pulse 99 98 Oximetry Medical Decision Making - Medical Decision Making This is a 66-year-old male who presents emergency department for right shoulder pain. Duplex ultrasound of the right upper extremity did not identify a DVT. The swelling over the incision is consistent with a seroma. There is no erythema, drainage, or tenderness over the incision site to suggest an inf ection. Findings discussed with the patient. Advised ibuprofen and Tylenol as needed for pain relief and instructed him to follow-up with his surgeon regarding the increase in pain and the postoperative seroma. Return precautions reviewed in depth, the patient is instructed to return to the emergency department with any new, worsening, or concerning symptoms. Patient verbalized understanding. This case was discussed in detail with the attending ED physician. Presentation, findings, and treatment plan discussed in detail as well. - Radiology Data Radiology results: report reviewed, image reviewed Disposition Clinical Impression: Right arm pain, Seroma after procedure Disposition: HOME SELF-CARE Instructions (If sedation given, give patient instructions): Arm Pain (ED), Seroma (DC) Additional Instructions: Return to the emergency department with any new, worsening, or concerning symptoms. Alternate with ibuprofen and Tylenol as needed for pain relief. Follow-up with your surgeon regarding the postoperative seroma. Follow up with your primary care provider in 1-2 days. Is patient prescribed a controlled substance at d/c from ED?: No Referrals: Zack Mancia DO [Primary Care Provider] - 1-2 days
--- NOTE | 2022-07-03 13:29 | US ---
EXAMINATION TYPE: US venous doppler duplex UE RT DATE OF EXAM: 07/03/2022 COMPARISON: NONE CLINICAL HISTORY: Pain in the right biceps after surgery. 9 days post right total shoulder SIDE PERFORMED: Right Right Arm: Negative for DVT - limited views of subclavian and portions of axillary due to surgical sc ar 4.2cm collection seen adjacent to scar, probable seroma IMPRESSION: 1. Right upper extremity ultrasound negative for deep venous thrombosis. 2. 4.2 cm anechoic collection adjacent to the scar could be a seroma. 3. Some limitation due to postsurgical nature.
[2022-07-03 13:57] VITALS: BP 124/85; PULSE 61; RESP 18
== END 2022-07-03 13:57 | disposition home or self-care (01) ==
LOC: EC 11:55
DX: L76.34 Postprocedural seroma of skin and subcutaneous tissue following other procedure (principal); J45.909 Unspecified asthma, uncomplicated; K21.9 Gastro-esophageal reflux disease without esophagitis; I10 Essential (primary) hypertension; Z88.8 Allergy status to other drugs, medicaments and biological substances; Z79.899 Other long term (current) drug therapy
CPT/HCPCS: 99283

== ENCOUNTER → 2022-12-15 | Outpatient (CLI) | payer MEDICARE ==
--- NOTE | 2022-12-15 10:37 | XR ---
EXAMINATION TYPE: XR KUB DATE OF EXAM: 12/15/2022 10:29 AM CLINICAL HISTORY: Kidney calculi. Left lower quadrant pain. TECHNIQUE: Two supine KUB images of the abdomen are obtained. COMPARISON: None. FINDINGS: Scattered gas is seen in non-distended small bowel loops. Gas and fecal material is seen in non-distended colon. Cholecystectomy clips are seen. There is additional surgical clip in the left p berta. There is multilevel spurring in the thoracolumbar spine. Lung bases are clear. There is 5 mm c alculus projecting over the mid to lower pole right kidney at superior L3 level just below the right 12th rib. No definitive left-sided nephrolithiasis. IMPRESSION: As above. Consider CT renal stone protocol followed to better evaluate.
== END ==
LOC: RADXRYALE 10:10
PROVIDERS: ATTEND Physician Assistant
DX: N20.0 Calculus of kidney (principal); Z90.49 Acquired absence of other specified parts of digestive tract
CPT/HCPCS: 74018

== ENCOUNTER 2022-12-17 15:17 | Day surgery (SDC) | payer MEDICARE ==
[~2022-12-17 15:17] MED LIST changes: +DEXAMETHASONE SOD PHOSPHATE 4 MG/ML 1 ML VIAL IV ONE; +LIDOCAINE 1% (10MG/ML) FOR IV START INTRADERMA PRN; +ONDANSETRON 4 MG/2 ML VIAL IVP ONE
[2022-12-17 15:42] VITALS: RESP 16
--- NOTE | 2022-12-17 15:50 | P.HPIHPCON ---
History of Present Illness H&P Date: 12/17/22 Chief Complaint: Left-sided ureteral stone, right-sided renal stone. This is a 67-year-old male with history of a 2 mm left-sided ureteral stone, and a 5 mm right-sided renal stone. Patient is having intractable pain secondary to stone. Discussed with him that left-sided ureteral stone is fairly small and high chance of spontaneous passage, he is having intractable pain for more than one week and was interested in proceeding with surgical intervention. Option of left-sided ureteroscopy holmium laser was discussed with him. Of note he wanted to address his right-sided renal stone at the same setting. Discussed option of bilateral ureteroscopy with holmium laser. Discussed risk of bleeding, infection, injury to the ureter. Risk from anesthesia was also discussed with him. He understood all the risk and agree to proceed Consent for Procedure: I have explained the operation/procedure to the patient, including the risks, benefits, side effects, alternative therapies (including not receiving the proposed treatment or service), the likelihood of the patient achieving his/her goals, and potential recuperation problems for the procedure/sedation/analgesia, as well as any blood products, if indicated. I also explained to the patient the risks, benefits and side effects of the alternatives, as well as the risks related to not receiving the proposed procedure, care, treatment, or services. 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 History of Any Multi-Drug Resistant Organisms: None Reported Past Surgical History: Cholecystectomy, Orthopedic Surgery Additional Past Surgical History / Comment(s): hemorrhoidectomy x 3, fusion of joint in great toe rt foot, rt hand surgery(removed two bones), chanel shoulder rotator cuff, left shoulder x2 Past Anesthesia/Blood Transfusion Reactions: Postoperative Nausea & Vomiting (PONV) Additional Past Anesthesia/Blood Transfusion Reaction / Comment(s): severe, NV with pre op nausea meds Past Psychological History: No Psychological Hx Reported Smoking Status: Never smoker Past Alcohol Use History: Occasional Past Drug Use History: None Reported - Past Family History Sister(s) Family Medical History: Cancer, Deep Vein Thrombosis (DVT) Mother Family Medical History: Congestive Heart Failure (CHF) Additional Family Medical History / Comment(s): mom is age 86 and in hospice c are in [place] -chf Father Family Medical History: Myocardial Infarction ([place]) Additional Family Medical History / Comment(s): several mi's still alive at age 91 Medications and Allergies Home Medications Medication Instructions Recorded Confirmed Type Multivitamins, Thera [Multivitamin 1 tab PO DAILY 03/08/17 12/17/22 History (formulary)] [place]-3 Fatty Acids/Fish Oil [Fish 1 cap PO DAILY 03/08/17 12/17/22 History Oil 1,000 mg Capsule] flaxseed oiL [[place]-3 Flaxseed Oil] 1,000 mg PO DAILY 03/08/17 12/17/22 History Celecoxib [CeleBREX] 100 mg PO QAM 08/25/17 12/17/22 History Ascorbic Acid [Vitamin C] 500 mg PO DAILY 01/27/18 12/17/22 History Calcium Carbonate [Calcium] 600 mg PO DAILY 01/27/18 12/17/22 History Glucosamine/Chondr Diane A Sod [Osteo 1 tab PO DAILY 01/27/18 12/17/22 History Bi-Flex Caplet] Acetaminophen Tab [Tylenol] 500 mg PO Q6HR PRN tab 01/28/18 12/17/22 Rx Pantoprazole [Protonix] 40 mg PO [id number]-[id number] #30 tablet. 01/28/18 12/17/22 Rx Diphenoxylate HCl/Atropine 2.5 mg PO DAILY 12/17/22 12/17/22 History [Lomotil 2.5-0.025 mg Tablet] Losartan [Cozaar] 50 mg PO DAILY 12/17/22 12/17/22 History Allergies Allergy/AdvReac Type Severity Reaction Status Date / Time antihistamines Allergy rapid Uncoded 12/17/22 15:34 heart beat/passed out Surgical - Exam Vital Signs Temp Pulse Resp BP Pulse Ox 97.4 F L 71 16 144/75 98 12/17/22 15:41 12/17/22 15:41 12/17/22 15:41 12/17/22 15:41 12/17/22 15:41 - General no distress, severe pain - Eyes normal ocular movement, no pale - ENT normal nares, normal mucosa - Respiratory normal expansion, normal respiratory effort - Abdomen Abdomen: soft, non tender Assessment and Plan Assessment: OR for bilateral ureteroscopy, holmium laser lithotripsy, stone basketing and possible stent insertion
[2022-12-17] MEDS ORDERED: fentaNYL (PF) 50 MCG/1 ML VIAL IVP ONE (16:20)
[2022-12-17] MEDS ORDERED: PHENYLEPHRINE-0.9% NACL SYG 1,000 MCG/10 ML SYRINGE ONE (17:40)
[2022-12-17] MEDS ORDERED: PROPOFOL 10 MG/ML 20 ML VIAL IV ONE (17:40)
[2022-12-17] MEDS ORDERED: LIDOCAINE 2% INJ 20 MG/ML (2 ML VIAL) ONE (17:40)
[2022-12-17] MEDS ORDERED: KETOROLAC 15 MG/ML 1 ML VIAL ONE (17:40)
[2022-12-17] MEDS ORDERED: MIDAZOLAM 2 MG/2 ML VIAL ONE (17:40)
[2022-12-17] MEDS ORDERED: fentaNYL (PF) 50 MCG/ML 2 ML AMP ONE (17:40)
[2022-12-17] MEDS ORDERED: IOPAMIDOL-370 100ML BTL INTRATHECA ONE (18:04)
[2022-12-17] MEDS ORDERED: LACTATED RINGERS 1,000 ML IV ONE (18:14)
[2022-12-17 19:17] VITALS: TEMP 97
--- NOTE | 2022-12-17 19:20 | P.OP ---
Date of Procedure: 12/17/22 Preoperative Diagnosis: Left ureteral stone, right renal stone Postoperative Diagnosis: same Procedure(s) Performed: Cystoscopy, bilateral ureteroscopy, left holmium laser lithotripsy, stone basketing, ureteral balloon dilation and stent insertion Implants: 6-Irish by 26 cm stent in the left ureter left on a string Anesthesia: MER Surgeon: Musa Garcia Estimated Blood Loss (ml): 5 Pathology: other (left ureteral stone) Condition: stable Disposition: PACU Indications for Procedure: This is a 67-year-old male with history of a 2 mm left-sided ureteral stone, and a 5 mm right-sided renal stone. Patient is having intractable pain secondary to stone. Discussed with him that left-sided ureteral stone is fairly small and high chance of spontaneous passage, he is having intractable pain for more than one week and was interested in proceeding with surgical intervention. Option of left-sided ureteroscopy holmium laser was discussed with him. Of note he wanted to address his right-sided renal stone at the same setting. Discussed option of bilateral ureteroscopy with holmium laser. Discussed risk of bleeding, infection, injury to the ureter. Risk from anesthesia was also discussed with him. He understood all the risk and agree to proceed Operative Findings: Left-sided UPJ stone Description of Procedure: Patient brought to the operating room, general anesthesia was induced. He was prepped and draped in sterile fashion and placed in dorsal lithotomy position. Cystoscopy fitted with a 21-Irish sheath was inserted per urethra, cystoscopy was performed which showed no abnormality within the bladder. Of note patient had an enlarged median lobe with intravesical extension. Attention was then carried to the left ureteral orifice which was intubated with a sensor wire. Next I attempted to pass a 1113 Irish access sheath over the wire but resistance was met at the distal ureter. At this time the flexible ureteroscope was backloaded over the wire, and I was able to advance the scope over the wire, but at this point resistance was met at the proximal ureter. At this point the scope was removed with the wire in place. Next a ureteral balloon dilator was passed over the wire, and the narrowed portion of the proximal ureter was dilated to 12-Irish using the balloon dilator under fluoroscopy. At this time the ureteroscope was backloaded over the wire and advanced over the wire and into the kidney. Renoscopy was performed showed a stone within the renal pelvis. Using the holmium laser the stone was dusted, the stone fragments was removed and sent for analysis. Repeat renoscopy showed no sizable stones or injury to the kidney. Pullback ureteroscopy was performed which showed no injury to the ureter or evidence of any ureteral stone. As ureteroscope was withdrawn and wire was passed through. Next a ureteral stent was passed over the wire, the proximal curl was visualized on fluoroscopy and the distal curl was visualized using the cystoscope. The stent was left on a string. Attention was carried to the right side which was intubated with a sensor wire. Next I attempted to pass a access sheath over the wire but resistance was met at the distal ureter. At this time I advance the flexible ureteroscope over over the wire. I was able to advance the scope over wire, but resistance was met at proximal ureter. At this time retrograde pyelogram was performed through the scope which showed significant narrowing proximal ureter, but no hydronephrosis. Given this finding and the fact that the stone is not obstruction decision was made not to proceed with the stone removal, at this time [facility] showed no injury to the ureter or any ureteral stones. There was no ureteral edema thus a stent was not placed. The bladder was emptied at the end of the case. Patient tolerated the procedure well, extubated and Patient was taken to recovery in stable condition, the patient stent was taped to his penis
[2022-12-17] MEDS ORDERED: KETOROLAC 15 MG/ML 1 ML VIAL IVP ONE (19:40)
--- NOTE | 2022-12-17 20:06 | FL ---
EXAMINATION TYPE: FL urography retrograde DATE OF EXAM: 12/17/2022 COMPARISON: NONE HISTORY: Cystoscopy with litho TECHNIQUE: Fluoroscopy. FINDINGS: Fluoroscopic guidance was provided during procedure performed by Dr. Garcia. A total of 3 minutes 40 seconds of fluoroscopic time was utilized during the procedure and 4 spot images was acqu ired. Total DAP 34.804. IMPRESSION: As Above.
[2022-12-17] MEDS ORDERED: HYDROcodone/APAP 5-325MG 1 EACH TAB ONE (20:25)
[2022-12-17] MEDS ORDERED: HYDROcodone/APAP 5-325MG 1 EACH TAB PO ONE (20:26)
[2022-12-17 20:32] VITALS: BP 150/94
[2022-12-17 20:44] VITALS: PULSE 71
[2022-12-18] MEDS ORDERED: HYDROmorphone 0.5 MG/0.5 ML SYRINGE IVP PRN (07:00)
== END 2022-12-17 21:02 | disposition home or self-care (01) ==
LOC: OR 15:17
PROVIDERS: ATTEND Urology
DX: N20.0 Calculus of kidney (principal); N13.5 Crossing vessel and stricture of ureter without hydronephrosis; N40.0 Benign prostatic hyperplasia without lower urinary tract symptoms; J45.909 Unspecified asthma, uncomplicated; K21.9 Gastro-esophageal reflux disease without esophagitis; I10 Essential (primary) hypertension; M19.90 Unspecified osteoarthritis, unspecified site; Z87.19 Personal history of other diseases of the digestive system; Z90.89 Acquired absence of other organs; Z98.1 Arthrodesis status; Z98.890 Other specified postprocedural states; F10.20 Alcohol dependence, uncomplicated; Z83.2 Family history of diseases of the blood and blood-forming organs and certain disorders involving the immune mechanism; Z82.49 Family history of ischemic heart disease and other diseases of the circulatory system; Z79.1 Long term (current) use of non-steroidal anti-inflammatories (NSAID); Z79.899 Other long term (current) drug therapy; Z88.8 Allergy status to other drugs, medicaments and biological substances
CPT/HCPCS: 82365; 74420; 52356; C1769 ×2; J2250; J1100; J0690; J2405; J3010 ×2; J1885; J2370; J2704; Q9967; J2001

== ENCOUNTER → 2022-12-28 | Outpatient (CLI) | payer MEDICARE ==
[2022-12-28 16:48] LABS: Appearance,Urine Turbid (Clear); Bacteria,Urine Trace /HPF (None Seen); Bilirubin,Urine Negative (Negative); Blood,Urine Large (Negative); Calcium Oxalate Crystals,Urine Present /LPF (None Seen); Color,Urine Dark Yellow (Yellow); Ketones,Urine Trace mg/dL (Negative); Mucus,Urine Present /LPF (None Seen); Nitrite,Urine Negative (Negative)
== END | disposition home or self-care (01) ==
LOC: LABPAT 09:31
PROVIDERS: ATTEND Urology
DX: Z01.812 Encounter for preprocedural laboratory examination (principal); N20.0 Calculus of kidney; R31.29 Other microscopic hematuria
CPT/HCPCS: 81001; 87086

== ENCOUNTER 2023-01-04 06:56 | Day surgery (SDC) | payer MEDICARE ==
--- NOTE | 2022-12-31 18:56 | P.HPIHPCON ---
History of Present Illness H&P Date: 12/31/22 Chief Complaint: Right renal stone This is a 67-year-old male with history of a 5 mm right-sided mid to lower pole stone, he is symptomatic from his stone. Option of ESWL versus uroscopy the holmium laser was discussed. Discussed risk which include but not limited to bleeding, infection, injury to the kidney. Discussed also potential of persistent stone even with an ESWL He understood all the risk and agreed to proceed Consent for Procedure: I have explained the operation/procedure to the patient, including the risks, benefits, side effects, alternative therapies (including not receiving the proposed treatment or service), the likelihood of the patient achieving his/her goals, and potential recuperation problems for the procedure/sedation/analgesia, as well as any blood products, if indicated. I also explained to the patient the risks, benefits and side effects of the alternatives, as well as the risks related to not receiving the proposed procedure, care, treatment, or services. Past Medical History Past Medical History: Asthma, GERD/Reflux, Hypertension, Osteoarthritis (OA) Additional Past Medical History / Comment(s): Kidney stones bilaterally, benign polyps and hemmoroids , past work place related asthma-no longer a problem, aortic valve leakage/sees Dr. Briggs History of Any Multi-Drug Resistant Organisms: None Reported Past Surgical History: Cholecystectomy, Joint Replacement, Orthopedic Surgery Additional Past Surgical History / Comment(s): 12/17/22 cysto lithotripsy with L ureteral stent with L ureteral stone basketing, hemorrhoidectomy x 3, fusion of joint in great toe rt foot, rt hand surgery(removed two bones), chanel shoulder rotator cuff, left shoulder x2, total replacement bilateral shoulders, colonoscopies/polypectomy, anal fistula repair. Past Anesthesia/Blood Transfusion Reactions: Postoperative Nausea & Vomiting (PONV) Additional Past Anesthesia/Blood Transfusion Reaction / Comment(s): severe, NV somewhat better with pre op nausea meds Smoking Status: Never smoker - Past Family History Sister(s) Family Medical History: Cancer, Deep Vein Thrombosis (DVT) Mother Family Medical History: Congestive Heart Failure (CHF) Additional Family Medical History / Comment(s): mom is . Father Family Medical History: Myocardial Infarction (ID) Additional Family Medical History / Comment(s): several mi's still alive at age 91 Medications and Allergies Home Medications Medication Instructions Recorded Confirmed Type Multivitamins, Thera [Multivitamin 1 tab PO QAM 03/08/17 12/30/22 History (formulary)] [place]-3 Fatty Acids/Fish Oil [Fish 1 cap PO DAILY 03/08/17 12/30/22 History Oil 1,000 mg Capsule] flaxseed oiL [[place]-3 Flaxseed Oil] 1,000 mg PO QAM 03/08/17 12/30/22 History Celecoxib [CeleBREX] 100 mg PO QAM 08/25/17 12/30/22 History Ascorbic Acid [Vitamin C] 500 mg PO QAM 01/27/18 12/30/22 History Calcium Carbonate [Calcium] 600 mg PO QAM 01/27/18 12/30/22 History Glucosamine/Chondr Diane A Sod [Osteo 1 tab PO QAM 01/27/18 12/30/22 History Bi-Flex Caplet] Acetaminophen Tab [Tylenol] 500 mg PO Q6HR PRN tab 01/28/18 12/30/22 Rx Pantoprazole [Protonix] 40 mg PO [id number] #30 tablet. 01/28/18 12/30/22 Rx Diphenoxylate HCl/Atropine 2.5 mg PO QAM PRN 12/17/22 12/30/22 History [Lomotil 2.5-0.025 mg Tablet] Losartan [Cozaar] 50 mg PO QAM 12/17/22 12/30/22 History Allergies Allergy/AdvReac Type Severity Reaction Status Date / Time antihistamines Allergy rapid Uncoded 12/30/22 09:03 heart beat/passed out Surgical - Exam - General no distress, moderate pain - Eyes normal ocular movement, no pale - ENT normal nares, normal mucosa - Respiratory normal expansion, normal respiratory effort - Abdomen Abdomen: soft, non tender Assessment and Plan Assessment: OR for right ESWL
--- NOTE | 2023-01-04 07:23 | XR ---
EXAMINATION TYPE: XR KUB DATE OF EXAM: 01/04/2023 7:14 AM INDICATION: Patient age:Male; 67 years old; Reason for study: N20.0; COMPARISON: 12/10/2021 TECHNIQUE: One radiographic view of the abdomen was obtained. FINDINGS: The bowel gas pattern is nonspecific without dilated loops of small or large bowel. There i s no evidence for organomegaly or pneumoperitoneum. The osseous structures are intact. Calcified den sities project over the right kidney less well appreciated due to overlying bowel gas. Fecal material and gas are demonstrated throughout the colon and rectum. IMPRESSION: Nonspecific bowel gas pattern without radiographic evidence for acute process. Per the visualized renal stone seen on prior.
[2023-01-04] MEDS ORDERED: LACTATED RINGERS 1,000 ML IV SCH (07:36)
[2023-01-04] MEDS ORDERED: ONDANSETRON 4 MG/2 ML VIAL ONE (07:47)
[2023-01-04 07:49] VITALS: RESP 16; TEMP 97.4
[2023-01-04] MEDS ORDERED: DEXAMETHASONE SOD PHOSPHATE 4 MG/ML 1 ML VIAL IVP ONE (07:59)
[2023-01-04] MEDS ORDERED: ONDANSETRON 4 MG/2 ML VIAL IVP ONE (07:59)
[2023-01-04] MEDS ORDERED: MIDAZOLAM 2 MG/2 ML VIAL ONE (08:19)
[2023-01-04] MEDS ORDERED: fentaNYL (PF) 50 MCG/ML 2 ML AMP ONE (08:19)
[2023-01-04] MEDS ORDERED: PROPOFOL 10 MG/ML 20 ML VIAL IV ONE (08:19)
--- NOTE | 2023-01-04 08:42 | P.OP ---
Date of Procedure: 01/04/23 Preoperative Diagnosis: Right renal stone Postoperative Diagnosis: Same Procedure(s) Performed: Extracorporeal shockwave lithotripsy, 1500 shocks at energy level IV Anesthesia: MAC Surgeon: Valerio Lazar Pathology: none sent Condition: stable Disposition: PACU Indications for Procedure: Patient is 67. He recently had a left ureteral stone manipulation. He now comes for shockwave lithotripsy to the right renal stone, 5 mm Description of Procedure: Patient brought to the operative suite. He is placed on the lithotripsy table in supine position. Stone was seen in 2 views of fluoroscopy in the right kidney. With the compact 2 coronary dealt the lithotripter 1500 shocks at energy level IV administered. The stone fractures nicely. At the end of the procedure the patient is awakened and returned recovery room in good condition. He tolerated the procedure well. He'll be discharged home upon recovery and found the office in one week with a KUB.
[2023-01-04 09:17] VITALS: BP 115/73; PULSE 60
== END 2023-01-04 09:57 | disposition home or self-care (01) ==
LOC: ORWHC2ENDO 06:56
PROVIDERS: ATTEND Urology
DX: N20.0 Calculus of kidney (principal); J45.909 Unspecified asthma, uncomplicated; K21.9 Gastro-esophageal reflux disease without esophagitis; I10 Essential (primary) hypertension; M19.90 Unspecified osteoarthritis, unspecified site; Z90.49 Acquired absence of other specified parts of digestive tract; Z98.1 Arthrodesis status; Z96.611 Presence of right artificial shoulder joint; Z96.612 Presence of left artificial shoulder joint; Z83.2 Family history of diseases of the blood and blood-forming organs and certain disorders involving the immune mechanism; Z82.49 Family history of ischemic heart disease and other diseases of the circulatory system; Z79.1 Long term (current) use of non-steroidal anti-inflammatories (NSAID); Z87.442 Personal history of urinary calculi; Z79.51 Long term (current) use of inhaled steroids; Z79.899 Other long term (current) drug therapy
CPT/HCPCS: 74018; 50590; J2250; J1100; J2405; J3010; J2704

== ENCOUNTER → 2023-01-11 | Outpatient (CLI) | payer MEDICARE ==
--- NOTE | 2023-01-11 09:58 | XR ---
EXAMINATION TYPE: XR KUB DATE OF EXAM: 01/11/2023 9:31 AM CLINICAL HISTORY: Renal calculus. TECHNIQUE: Two supine KUB images of the abdomen are obtained. COMPARISON: Abdominal x-ray one week ago FINDINGS: Approximately 3 small right renal calculi are redemonstrated measuring up to 5 to 6 mm in s ize. No left-sided nephrolithiasis. Occasional tiny pelvic phleboliths redemonstrated. Cholecystectomy clips are noted including displaced clip in the left pelvis redemonstrated. Slight sc oliotic curvature with multilevel spurring in the spine. Overall nonobstructive bowel gas pattern. IMPRESSION: As above.
== END | disposition home or self-care (01) ==
LOC: RADXRMAIN 09:18
PROVIDERS: ATTEND Urology
DX: N20.0 Calculus of kidney (principal)
CPT/HCPCS: 74018

== ENCOUNTER → 2024-12-20 | Outpatient (CLI) | payer MEDICARE ==
--- NOTE | 2024-12-20 10:22 | XR ---
EXAMINATION TYPE: XR wrist complete LT DATE OF EXAM: 12/20/2024 10:09 AM COMPARISON: None CLINICAL INDICATION: Male, 69 years old with history of [id number] LT WRIST PAIN; YCH, pain TECHNIQUE: XR wrist complete LT; examined in the Frontal, navicular, lateral, and oblique. FINDINGS: No acute osseous pathology, joint dislocation, or joint effusion. No evidence of any soft tissue swelling is seen. Degeneration changes with some sclerosis of the scaphoid and radius articula tion. Mild widening of the scapholunate ligament up to 5 mm. IMPRESSION: 1. No acute osseous pathology. 2. Possible scapholunate ligament injury with degeneration changes of the scaphoid radius articulati on with subchondral cystic change. Consider further evaluation with MRI of the wrist. [facility], , 12/20/2024 10:20 AM
== END | disposition home or self-care (01) ==
LOC: RADXRYALE 10:00
PROVIDERS: ATTEND Physician Assistant Medical
DX: M19.032 Primary osteoarthritis, left wrist (principal)